=== PATIENT | male | born 1950 | race Caucasian/White ===

== ENCOUNTER 2017-10-04 09:38 | Inpatient (IN) | payer MEDICARE, SELFPAY ==
[~2017-10-04] VITALS: Ht 177.8 cm; Wt 95.7 kg
[2017-10-04] MEDS ORDERED: OMNIPAQUE 350 MG/ML, 100ML BOTTLE ONE (11:17)
[2017-10-04] MEDS ORDERED: ONDANSETRON 2MG/ML, 2ML ONE ×2 (11:30→12:24)
[2017-10-04] MEDS ORDERED: HYDROmorphone 1 MG/ML, 1ML IVPush PRN (11:30)
[2017-10-04] MEDS ORDERED: SODIUM CHLORIDE FLUSH 10ML SYR IVF ONE (11:30)
[2017-10-04] MEDS ORDERED: HYDROmorphone 1 MG/ML, 1ML ONE ×2 (11:30→12:24)
[2017-10-04] MEDS ORDERED: ONDANSETRON 2MG/ML, 2ML IVPush ONE (11:30)
[2017-10-04] MEDS ORDERED: NS + 20MEQ KCL 1,000 ML IV SCH (12:19)
[2017-10-04] MEDS ORDERED: ONDANSETRON 2MG/ML, 2ML IVPush PRN (12:30)
[2017-10-04] MEDS ORDERED: POLYETHYLENE GLYCOL 17 GM PACKET PO PRN (12:30)
[2017-10-04] MEDS ORDERED: LABETALOL 5MG/ML, 20ML IVPush PRN (12:30)
[2017-10-04] MEDS ORDERED: ACETAMINOPHEN 325 MG TABLET PO PRN (12:30)
[2017-10-04] MEDS ORDERED: DOCUSATE 100 MG CAPSULE PO PRN (12:30)
[2017-10-04 12:42] LABS: HEMATOCRIT 49.1 % (39.2-51.8); HEMOGLOBIN 16.3 g/dL (13.7-18.0); WHITE BLOOD COUNT 13.2 x10^3/uL (3.4-10)
[2017-10-04 12:50] LABS: ASPARTATE AMINO TRANSFERASE 16 U/L (15-37); BLOOD UREA NITROGEN 15 mg/dL (7-18)
[2017-10-04] MEDS ORDERED: HYDROmorphone 2 MG/ML, 1ML ONE (12:52)
[2017-10-04 12:55] LABS: PROSTATE SPECIFIC ANTIGEN 3.72 ng/mL (0.00-4.00)
[2017-10-04 12:58] LABS: IS PT STATUS REG ER OR PRE ER? YES
[2017-10-04] MEDS ORDERED: REGADENOSON 0.4 MG/5 ML SYRINGE ONE (13:52)
[2017-10-04] MEDS: CIPROFLOXACIN/PMX 400MG/200ML 200 ML IV SCH (15:11)
[2017-10-04] MEDS: NICOTINE 14MG/24 HR PATCH.TD24 TD SCH (15:11)
[2017-10-04] MEDS: METOPROLOL TARTRATE 25 MG TABLET PO SCH (15:12)
[2017-10-04] MEDS: ENOXAPARIN 40 MG/0.4 ML SQ SCH (15:12)
[2017-10-04 15:56] VITALS: BP 151/101
[2017-10-04] MEDS: HYDROcodone/APAP 5/325 TABLET PO PRN (16:13)
[2017-10-04 16:16] VITALS: BP 155/114
[2017-10-04] MEDS: hydrALAzine 20 MG/ML, 1ML IV PRN (16:26)
[2017-10-04 17:00] VITALS: BP 149/96
[2017-10-04] MEDS: METRONIDAZOLE PMX 500MG/100ML 100 ML IV SCH (19:51)
[2017-10-04 21:03] VITALS: BP 119/73
[2017-10-05 02:04] VITALS: BP 145/87
[2017-10-05] MEDS: METOPROLOL TARTRATE 25 MG TABLET PO SCH ×3 (03:00→17:12)
[2017-10-05] MEDS: METRONIDAZOLE PMX 500MG/100ML 100 ML IV SCH ×3 (03:19→19:16)
[2017-10-05] MEDS: CIPROFLOXACIN/PMX 400MG/200ML 200 ML IV SCH ×2 (03:30→15:45)
[2017-10-05] MEDS: HYDROcodone/APAP 5/325 TABLET PO PRN ×4 (04:20→17:12)
[2017-10-05 07:54] VITALS: BP 103/66
[2017-10-05] MEDS: SENNA/DOCUSATE TABLET PO SCH (08:20)
[2017-10-05 15:00] VITALS: BP 138/89
[2017-10-05] MEDS: NICOTINE 14MG/24 HR PATCH.TD24 TD SCH (15:45)
[2017-10-05] MEDS: ENOXAPARIN 40 MG/0.4 ML SQ SCH (15:45)
[2017-10-05 19:20] VITALS: BP 135/87
[2017-10-06] MEDS: HYDROcodone/APAP 5/325 TABLET PO PRN ×3 (00:02→10:12)
[2017-10-06 01:46] VITALS: BP 145/97
[2017-10-06] MEDS: METRONIDAZOLE PMX 500MG/100ML 100 ML IV SCH ×3 (02:56→21:41)
[2017-10-06] MEDS: CIPROFLOXACIN/PMX 400MG/200ML 200 ML IV SCH ×2 (04:04→15:30)
[2017-10-06] MEDS: METOPROLOL TARTRATE 25 MG TABLET PO SCH ×2 (05:50→18:00)
[2017-10-06 07:31] VITALS: BP 143/77
[2017-10-06] MEDS: SENNA/DOCUSATE TABLET PO SCH (08:03)
[2017-10-06] MEDS ORDERED: LIDOCAINE GEL 2%, 5ML ONE (13:21)
[2017-10-06] MEDS ORDERED: PROPOFOL 10 MG/ML, 20ML ONE (13:21)
[2017-10-06] MEDS ORDERED: ROCURONIUM 10 MG/ML,10ML ONE (13:21)
[2017-10-06] MEDS ORDERED: MIDAZOLAM 1 MG/ML, 2ML ONE (13:22)
[2017-10-06] MEDS ORDERED: DEXAMETHASONE 4 MG/ML, 1ML ONE ×2 (13:22→14:26)
[2017-10-06] MEDS ORDERED: ONDANSETRON 2MG/ML, 2ML ONE (13:22)
[2017-10-06] MEDS ORDERED: FENTANYL PF 1000 MCG/20ML ONE (13:23)
[2017-10-06] MEDS ORDERED: BACITRACIN 50,000 UNIT ONE (13:32)
[2017-10-06] MEDS ORDERED: PROTAMINE SULFATE 10 MG/ML, 5ML ONE (13:32)
[2017-10-06] MEDS ORDERED: HEPARIN 1,000 UNITS/ML, 10ML ONE ×2 (13:32→13:53)
[2017-10-06] MEDS ORDERED: THROMBIN 20,000 UNIT VIAL TP ONE (13:32)
[2017-10-06] MEDS ORDERED: MANNITOL PMX 20% 500 ML ONE (13:48)
[2017-10-06] MEDS ORDERED: FUROSEMIDE 20 MG/2 ML ONE (13:49)
[2017-10-06] MEDS ORDERED: CALCIUM CHLORIDE 10%, 10ML SYR ONE (14:26)
[2017-10-06] MEDS ORDERED: SODIUM BICARB 8.4%, 50ML SYRINGE ONE (14:26)
[2017-10-06] MEDS: NICOTINE 14MG/24 HR PATCH.TD24 TD SCH (15:30)
[2017-10-06] MEDS ORDERED: morphine SULFATE 10 MG/ML, 1ML ONE (18:24)
[2017-10-06] MEDS ORDERED: NITROPRUSSIDE 50 MG in SODIUM CHLORIDE 0.9% 248 ML IV PRN (18:30)
[2017-10-06] MEDS ORDERED: LIDOCAINE-MPF 1%, 2ML ENDO PRN (18:30)
[2017-10-06] MEDS ORDERED: PHARMACY MAY ADJ FOR RENAL FX MC SCH (18:30)
[2017-10-06] MEDS: ALBUTEROL/IPRATROPIUM 2.5MG/0.5MG, 3 ML INLINE SCH ×2 (18:30→22:30)
[2017-10-06 18:40] LABS: ABG COLLECTION SITE ARTERIAL LINE
[2017-10-06 18:44] LABS: BLOOD UREA NITROGEN 18 mg/dL (7-18)
[2017-10-06 18:44] LABS: HEMATOCRIT 49.8 % (39.2-51.8); HEMOGLOBIN 16.4 g/dL (13.7-18.0); WHITE BLOOD COUNT 20.2 x10^3/uL (3.4-10)
[2017-10-06] MEDS: morphine SULFATE 10 MG/ML, 1ML IV PRN (18:44)
[2017-10-06] MEDS: hydrALAzine 20 MG/ML, 1ML IV PRN (18:49)
[2017-10-06] MEDS: D5%-LACTATED RINGERS 1,000 ML IV SCH (18:53)
[2017-10-06] MEDS ORDERED: ONDANSETRON 2MG/ML, 2ML IV PRN (19:00)
[2017-10-06] MEDS ORDERED: LABETALOL 5MG/ML, 20ML IVPush PRN (19:00)
[2017-10-06] MEDS ORDERED: METOPROLOL 1 MG/ML, 5ML IVPush PRN (19:00)
[2017-10-06] MEDS ORDERED: hydrALAzine 20 MG/ML, 1ML IV PRN (19:00)
[2017-10-06] MEDS ORDERED: NICOTINE 14MG/24 HR PATCH.TD24 TD SCH (19:00)
[2017-10-06 19:06] LABS: DIFF TOTAL CELLS COUNTED 100 CELL DIFF
[2017-10-06 19:08] LABS: VERIFY COUNTS? YES
[2017-10-06] MEDS: CEFAZOLIN PMX 2GM/50ML 50 ML IVPB SCH (20:05)
[2017-10-06] MEDS: PROPOFOL 100 ML IV PRN (20:39)
[2017-10-07] MEDS: PROPOFOL 100 ML IV PRN ×2 (01:37→06:11)
[2017-10-07] MEDS: ALBUTEROL/IPRATROPIUM 2.5MG/0.5MG, 3 ML INLINE SCH ×4 (02:06→14:30)
[2017-10-07] MEDS: CEFAZOLIN PMX 2GM/50ML 50 ML IVPB SCH (03:00)
[2017-10-07] MEDS: CIPROFLOXACIN/PMX 400MG/200ML 200 ML IV SCH ×2 (03:38→14:51)
[2017-10-07 04:11] LABS: BLOOD UREA NITROGEN 19 mg/dL (7-18)
[2017-10-07 04:24] LABS: HEMATOCRIT 46.1 % (39.2-51.8)
[2017-10-07 05:01] LABS: ABG COLLECTION SITE LEFT RADIAL; COLLATERAL CIRCULATION TESTING NORMAL
[2017-10-07] MEDS: D5%-LACTATED RINGERS 1,000 ML IV SCH ×2 (05:04→07:50)
[2017-10-07] MEDS: METRONIDAZOLE PMX 500MG/100ML 100 ML IV SCH ×3 (05:05→20:10)
[2017-10-07 06:02] VITALS: BP 111/76
[2017-10-07] MEDS: METOPROLOL TARTRATE 25 MG TABLET PO SCH ×2 (06:14→18:00)
[2017-10-07] MEDS ORDERED: MAGNESIUM SULFATE PMX 4GM/100M 100 ML IV ONE (07:30)
[2017-10-07] MEDS: SODIUM CHLORIDE 0.9% 1,000 ML IV SCH ×2 (08:53→20:10)
[2017-10-07] MEDS: HYDROcodone/APAP 5/325 TABLET PO PRN (08:53)
[2017-10-07] MEDS: PANTOPRAZOLE 40 MG IV IVPush SCH (08:54)
[2017-10-07] MEDS: SENNA/DOCUSATE TABLET PO SCH (08:54)
[2017-10-07] MEDS ORDERED: ENOXAPARIN 40 MG/0.4 ML SQ SCH (09:00)
[2017-10-07] MEDS ORDERED: ENOXAPARIN 30 MG/0.3 ML SQ SCH (09:00)
[2017-10-07 10:01] LABS: BLOOD UREA NITROGEN 19 mg/dL (7-18)
[2017-10-07] MEDS: HYDROmorphone 2 MG/ML, 1ML IVPush PRN ×2 (11:01→20:10)
[2017-10-07] MEDS: morphine SULFATE 10 MG/ML, 1ML IV PRN ×3 (14:51→22:29)
[2017-10-07] MEDS: NICOTINE 14MG/24 HR PATCH.TD24 TD SCH (15:24)
[2017-10-07] MEDS: CEFTRIAXONE PMX 2GM/50ML 50 ML IVPB SCH (16:30)
[2017-10-07] MEDS: HEPARIN 5,000 UNITS/ML, 1ML SQ SCH (18:47)
[2017-10-07 19:47] VITALS: BP_SYST 95; BP_SYST 98; BP_DIAS 56; BP_DIAS 62
[2017-10-08] MEDS: HYDROmorphone 2 MG/ML, 1ML IVPush PRN ×3 (00:37→08:37)
[2017-10-08 00:46] VITALS: BP 100/63
[2017-10-08] MEDS: morphine SULFATE 10 MG/ML, 1ML IV PRN (03:14)
[2017-10-08] MEDS: METRONIDAZOLE PMX 500MG/100ML 100 ML IV SCH (03:14)
[2017-10-08] MEDS: HEPARIN 5,000 UNITS/ML, 1ML SQ SCH ×3 (03:15→17:38)
[2017-10-08 05:49] LABS: HEMATOCRIT 44.3 % (39.2-51.8); HEMOGLOBIN 14.6 g/dL (13.7-18.0); WHITE BLOOD COUNT 16.4 x10^3/uL (3.4-10)
[2017-10-08] MEDS: METOPROLOL TARTRATE 25 MG TABLET PO SCH ×2 (06:00→17:38)
[2017-10-08 06:07] LABS: ASPARTATE AMINO TRANSFERASE 15 U/L (15-37); BLOOD UREA NITROGEN 21 mg/dL (7-18)
[2017-10-08 08:15] VITALS: BP 136/88
[2017-10-08] MEDS: SENNA/DOCUSATE TABLET PO SCH (08:37)
[2017-10-08] MEDS: SODIUM CHLORIDE 0.9% 1,000 ML IV SCH (08:37)
[2017-10-08] MEDS: PANTOPRAZOLE 40 MG IV IVPush SCH (08:37)
[2017-10-08 13:15] VITALS: BP 110/72
[2017-10-08] MEDS: NICOTINE 14MG/24 HR PATCH.TD24 TD SCH (15:51)
[2017-10-08] MEDS: CEFTRIAXONE PMX 2GM/50ML 50 ML IVPB SCH (15:55)
[2017-10-08] MEDS ORDERED: D5%-0.45% NACL 1,000 ML IV SCH (18:30)
[2017-10-08 19:50] VITALS: BP 114/84
[2017-10-09] MEDS: HEPARIN 5,000 UNITS/ML, 1ML SQ SCH ×2 (01:42→09:31)
[2017-10-09 03:14] VITALS: BP 112/77
[2017-10-09 05:06] LABS: HEMATOCRIT 42.1 % (39.2-51.8); HEMOGLOBIN 13.9 g/dL (13.7-18.0); WHITE BLOOD COUNT 12.7 x10^3/uL (3.4-10)
[2017-10-09 05:37] VITALS: BP 137/92
[2017-10-09 05:42] LABS: BLOOD UREA NITROGEN 17 mg/dL (7-18)
[2017-10-09] MEDS: METOPROLOL TARTRATE 25 MG TABLET PO SCH ×2 (05:45→17:42)
[2017-10-09 07:33] VITALS: BP 127/75
[2017-10-09 09:18] VITALS: BP 139/92
[2017-10-09] MEDS: SENNA/DOCUSATE TABLET PO SCH (09:31)
[2017-10-09] MEDS ORDERED: ENOXAPARIN 40 MG/0.4 ML SQ SCH (10:30)
[2017-10-09] MEDS: ENOXAPARIN 40 MG/0.4 ML SQ SCH (12:00)
[2017-10-09] MEDS: POTASSIUM CHLORIDE 40 MEQ in D5%-0.9% NACL 1,000 ML IV SCH (13:34)
[2017-10-09] MEDS: ASPIRIN 81 MG TABLET EC PO SCH ×3 (13:34→15:14)
[2017-10-09] MEDS: FAMOTIDINE 20 MG TABLET PO SCH (13:34)
[2017-10-09 14:09] VITALS: BP 109/70
[2017-10-09] MEDS: NICOTINE 14MG/24 HR PATCH.TD24 TD SCH (17:35)
[2017-10-09] MEDS: CEFTRIAXONE PMX 2GM/50ML 50 ML IVPB SCH (17:35)
[2017-10-09 18:29] LABS: IS PT STATUS REG ER OR PRE ER? NO
[2017-10-09] MEDS ORDERED: D5%-0.45% NACL 1,000 ML IV SCH (18:30)
[2017-10-09 20:48] VITALS: BP 94/61
[2017-10-10 01:45] VITALS: BP 124/76
[2017-10-10] MEDS: HYDROcodone/APAP 5/325 TABLET PO PRN ×5 (02:46→21:34)
[2017-10-10 04:52] LABS: HEMATOCRIT 41.1 % (39.2-51.8); HEMOGLOBIN 13.8 g/dL (13.7-18.0); WHITE BLOOD COUNT 10.4 x10^3/uL (3.4-10)
[2017-10-10 05:04] LABS: BLOOD UREA NITROGEN 16 mg/dL (7-18)
[2017-10-10] MEDS: POTASSIUM CHLORIDE 40 MEQ in D5%-0.9% NACL 1,000 ML IV SCH ×2 (05:51→11:02)
[2017-10-10 06:07] VITALS: BP 108/68
[2017-10-10] MEDS: METOPROLOL TARTRATE 25 MG TABLET PO SCH ×2 (06:10→17:09)
[2017-10-10 07:27] VITALS: BP 134/85
[2017-10-10] MEDS: SENNA/DOCUSATE TABLET PO SCH (09:31)
[2017-10-10] MEDS: FAMOTIDINE 20 MG TABLET PO SCH (09:31)
[2017-10-10] MEDS ORDERED: morphine SULFATE 10 MG/ML, 1ML IV PRN (11:30)
[2017-10-10] MEDS: ENOXAPARIN 40 MG/0.4 ML SQ SCH (12:07)
[2017-10-10 13:19] VITALS: BP 114/68
[2017-10-10] MEDS: CEFTRIAXONE PMX 2GM/50ML 50 ML IVPB SCH (16:59)
[2017-10-10] MEDS: GUAIFENESIN 200 MG TABLET PO SCH ×2 (16:59→21:35)
[2017-10-10] MEDS: NICOTINE 14MG/24 HR PATCH.TD24 TD SCH (16:59)
[2017-10-10 18:47] VITALS: BP 110/73
[2017-10-11] MEDS: POTASSIUM CHLORIDE 40 MEQ in D5%-0.9% NACL 1,000 ML IV SCH ×2 (00:18→13:59)
[2017-10-11] MEDS: HYDROcodone/APAP 5/325 TABLET PO PRN ×6 (01:18→22:43)
[2017-10-11 01:59] VITALS: BP 129/83
[2017-10-11 04:46] LABS: HEMATOCRIT 42.4 % (39.2-51.8); HEMOGLOBIN 13.9 g/dL (13.7-18.0)
[2017-10-11 04:54] LABS: BLOOD UREA NITROGEN 16 mg/dL (7-18)
[2017-10-11 04:57] LABS: ASPARTATE AMINO TRANSFERASE 14 U/L (15-37)
[2017-10-11] MEDS: ASPIRIN 81 MG TABLET EC PO SCH (05:30)
[2017-10-11] MEDS: METOPROLOL TARTRATE 25 MG TABLET PO SCH ×2 (06:47→18:17)
[2017-10-11 07:47] VITALS: BP 127/88
[2017-10-11] MEDS: SENNA/DOCUSATE TABLET PO SCH (09:48)
[2017-10-11] MEDS: GUAIFENESIN 200 MG TABLET PO SCH ×3 (09:48→20:05)
[2017-10-11] MEDS: FAMOTIDINE 20 MG TABLET PO SCH (09:48)
[2017-10-11 13:31] VITALS: BP 129/80
[2017-10-11] MEDS: ENOXAPARIN 40 MG/0.4 ML SQ SCH (13:57)
[2017-10-11] MEDS: CEFTRIAXONE PMX 2GM/50ML 50 ML IVPB SCH (17:27)
[2017-10-11] MEDS: SODIUM CHLORIDE 0.9% 1,000 ML IV SCH (17:29)
[2017-10-11] MEDS: NICOTINE 14MG/24 HR PATCH.TD24 TD SCH (17:29)
[2017-10-11 18:14] VITALS: BP 143/88
[2017-10-11] MEDS ORDERED: OMNIPAQUE 350 MG/ML, 100ML BOTTLE ONE (19:00)
[2017-10-12 02:28] VITALS: BP 137/75
[2017-10-12] MEDS: SODIUM CHLORIDE 0.9% 1,000 ML IV SCH ×2 (02:42→12:10)
[2017-10-12] MEDS: HYDROcodone/APAP 5/325 TABLET PO PRN ×5 (02:42→20:11)
[2017-10-12] MEDS: POTASSIUM CHLORIDE 40 MEQ in D5%-0.9% NACL 1,000 ML IV SCH ×2 (03:44→18:09)
[2017-10-12] MEDS: METOPROLOL TARTRATE 25 MG TABLET PO SCH (06:20)
[2017-10-12] MEDS: ASPIRIN 81 MG TABLET EC PO SCH (06:20)
[2017-10-12 06:53] LABS: HEMATOCRIT 42.6 % (39.2-51.8); HEMOGLOBIN 14.1 g/dL (13.7-18.0); WHITE BLOOD COUNT 9.9 x10^3/uL (3.4-10)
[2017-10-12 06:59] LABS: BLOOD UREA NITROGEN 15 mg/dL (7-18)
[2017-10-12 07:40] VITALS: BP 153/86
[2017-10-12] MEDS: GUAIFENESIN 200 MG TABLET PO SCH ×4 (09:24→21:18)
[2017-10-12] MEDS: FAMOTIDINE 20 MG TABLET PO SCH (10:00)
[2017-10-12 13:41] VITALS: BP 143/84
[2017-10-12] MEDS: NICOTINE 14MG/24 HR PATCH.TD24 TD SCH (16:24)
[2017-10-12] MEDS: METOPROLOL TARTRATE 50 MG TABLET PO SCH (18:10)
[2017-10-12 20:31] VITALS: BP 139/90
[2017-10-13 00:16] VITALS: BP 127/80
[2017-10-13] MEDS: SODIUM CHLORIDE 0.9% 1,000 ML IV SCH (00:26)
[2017-10-13] MEDS: HYDROcodone/APAP 5/325 TABLET PO PRN ×4 (00:26→13:29)
[2017-10-13] MEDS: POTASSIUM CHLORIDE 40 MEQ in D5%-0.9% NACL 1,000 ML IV SCH (05:27)
[2017-10-13] MEDS: ASPIRIN 81 MG TABLET EC PO SCH (05:28)
[2017-10-13] MEDS: METOPROLOL TARTRATE 50 MG TABLET PO SCH (05:28)
[2017-10-13 06:01] LABS: HEMATOCRIT 42.1 % (39.2-51.8); HEMOGLOBIN 14.1 g/dL (13.7-18.0); WHITE BLOOD COUNT 11.5 x10^3/uL (3.4-10)
[2017-10-13 06:11] LABS: BLOOD UREA NITROGEN 14 mg/dL (7-18)
[2017-10-13 07:31] VITALS: BP 145/89
[2017-10-13] MEDS ORDERED: MAGNESIUM HYDROXIDE 8%, 30ML UDC PO PRN (08:00)
[2017-10-13] MEDS ORDERED: DOCUSATE 100 MG CAPSULE PO SCH (09:00)
[2017-10-13] MEDS: FAMOTIDINE 20 MG TABLET PO SCH (09:37)
[2017-10-13] MEDS: GUAIFENESIN 200 MG TABLET PO SCH ×2 (09:38→16:00)
[2017-10-13] MEDS ORDERED: OMNIPAQUE 350 MG/ML, 100ML BOTTLE ONE (10:43)
[2017-10-13] MEDS ORDERED: HYDR-3240 PO (11:59)
[2017-10-13] MEDS ORDERED: ASPI-621 PO (11:59)
[2017-10-13] MEDS ORDERED: METO50TA82 PO (11:59)
[2017-10-13 14:25] VITALS: BP 149/98
[2017-10-13] MEDS: NICOTINE 14MG/24 HR PATCH.TD24 TD SCH (15:44)
[2017-10-13] MEDS ORDERED: PNEUMOCOCCAL 23 VACCINE IM-VACC ONE (16:30)
[2017-10-13] MEDS ORDERED: FLU VACC QS2017-18 (36MOS+) UP/PF 0.5 ML IM-VACC ONE (16:30)
[2017-10-13] MEDS ORDERED: NICO-486 TD (16:57)
== END 2017-10-13 17:07 | disposition home or self-care (01) | DRG 268 ==
LOC: SUATTDRO 12:01 → ED 12:18 → EDIP 12:19 → ED 12:50 → 4NOR 13:16 → CCU 10-06 17:58 → ICU 10-07 11:57 → 4WST 10-07 16:04 → 4NOR 10-08 18:30 → DCLOUNGE 10-13 16:55
PROVIDERS: ADMIT Family Medicine; ATTEND Family Medicine
PROC: 0WQF0ZZ Repair Abdominal Wall, Open Approach (ICD-10-PCS; 2017-10-06)
PROC: 04R00KZ Replacement of Abdominal Aorta with Nonautologous Tissue Substitute, Open Approach (ICD-10-PCS; principal; 2017-10-06 14:00)
DX: I71.3 Abdominal aortic aneurysm, ruptured (principal); J96.00 Acute respiratory failure, unspecified whether with hypoxia or hypercapnia; D72.829 Elevated white blood cell count, unspecified; K57.90 Diverticulosis of intestine, part unspecified, without perforation or abscess without bleeding; F10.21 Alcohol dependence, in remission; F17.210 Nicotine dependence, cigarettes, uncomplicated; I10 Essential (primary) hypertension; I71.2 Thoracic aortic aneurysm, without rupture; K42.9 Umbilical hernia without obstruction or gangrene; N40.0 Benign prostatic hyperplasia without lower urinary tract symptoms; Z66 Do not resuscitate; Z79.899 Other long term (current) drug therapy; Z90.5 Acquired absence of kidney; Z91.14 Patient's other noncompliance with medication regimen; Z23 Encounter for immunization
CPT/HCPCS: 36415; 36600; 71010; 71250; 71275; 74174; 74175; 78452; 80048; 80053; 81001; 82040; 82330; 82803; 82947; 83735; 84132; 84153; 84295; 84478; 84484; 85014; 85025; 85610; 85730; 86850; 86900; 86923; 87070; 87077; 87081; 87086; 87186; 87205; 87324; 90686; 90732; 93005; 93017; 93306; 94002; 94003; 94150; 94640; 96374; 96375; C1768; J0690; J0696; J0744; J1100; J1170; J1644; J1650; J2250; J2270; J2405; J2704; J2720; J2785; J3010; J3480; J7042; J7620; Q9967; A9502; C9113; C9898; J0360; J1940; J3475; J7030; J7121

== ENCOUNTER → 2018-01-04 | Outpatient (CLI) | payer MEDICARE ==
[~2018-01-04] MED LIST: AMOX1TAB61 PO; ASPI-496 PO; ASPI-621 PO; HYDR-3237 PO; HYDR-3240 PO; LISI-170 PO; METO-93 PO; METO50TA82 PO; NICO-486 TD
== END | disposition home or self-care (01) ==
LOC: CFH 14:55
PROVIDERS: ATTEND Licensed Practical Nurse
DX: J44.9 Chronic obstructive pulmonary disease, unspecified (principal); I71.2 Thoracic aortic aneurysm, without rupture
CPT/HCPCS: 71250